=== PATIENT | female | born 1955 | race Two or more races ===

== ENCOUNTER 2024-11-27 14:14 | Inpatient (IN) | payer MEDICARE, OTHER ==
[~2024-11-27] VITALS: Ht 160 cm; Wt 56.0 kg
--- NOTE | 2024-11-27 15:01 | ED.PDOC ---
GI ASSESSMENT HPI Comments This is a 69 year old female presenting to the ED with chief complaint of abdominal pain. Patient reports that she has been experiencing RUQ abdominal pain with associated increased burping for the past 3 days. Patient relays that her pain radiates to her back. Patient denies any vomiting, diarrhea, chest pain, SOB, dizziness, fever, or chills. Chief Complaint: Abdominal Pain Time Seen by MD: 15:00 Reviewed Notes: Nurses Notes, Medications, Allergies Allergies: Coded Allergies: NO KNOWN ALLERGIES (Unverified , 11/27/24) Information Source: Patient Mode of Arrival: Ambulatory Timing: Days Duration: Since onset Prehospital treatment: None Quality: Aching Vomitus: None Stool: Normal Severity: Moderate Recent: None Recent Hx of: None Pain Location: RUQ Modifying Factors: Nothing Associated sign and symptoms: Abdominal Pain Past Medical History PAST MEDICAL HISTORY: DM, High Lipids, HTN Surgical History: Appendectomy CITRUS PICKER History: Denies all [place]RUS PICKER Hx Family History Family History: Reviewed,noncontributory to illness Social History Smoker: Non-Smoker Alcohol: Denies ETOH Use Drugs: Denies Drug Use Lives In: Home Constitutional: denies: chills, diaphoresis, fatigue, fever, malaise, sweats, weakness, others EENTM: denies: blurred vision, double vision, ear bleeding, ear discharge, ear drainage, ear pain, ear ringing, eye pain, eye redness, hearing loss, mouth pain, mouth swelling, nasal discharge, nose bleeding, nose congestion, nose pain, photophobia, tearing, throat pain, throat swelling, voice changes, others Respiratory: denies: cough, hemoptysis, orthopnea, SOB at rest, shortness of breath, SOB with excertion, stridor, wheezing, others Cardiovascular: denies: chest pain, dizzy spells, diaphoresis, Dyspnea on exertion, edema, irregular heart beat, left arm pain, lightheadedness, palpitations, PND, syncope, others Gastrointestinal: reports: abdominal pain; denies: abdomen distended, blood streaked bowels, constipated, diarrhea, dysphagia, difficulty swallowing, hematemesis, melena, nausea, poor appetite, poor fluid intake, rectal bleeding, rectal pain, vomiting, others Genitourinary: denies: abnormal vagina bleeding, burning, dyspareunia, dysuria, flank pain, frequency, hematuria, incontinence, pain, , vagina discharge, urgency, others Neurological: denies: dizziness, fainting, headache, left sided numbness, left sided weakness, numbness, paresthesia, pre-existing deficit, right sided numbness, right sided weakness, seizure, speech problems, tingling, tremors, weakness, others Musculoskeletal: reports: back pain; denies: gout, joint pain, joint swelling, muscle pain, muscle stiffness, neck pain, others Integumetry: denies: bruises, change in color, change in hair/nails, dryness, laceration, lesions, lumps, rash, wounds, others Allergic/Immunocompromised: denies: Difficulty Healing, Frequent Infections, Hives, Itching, others Hematologic/Lymphatic: denies: anemia, blood clots, easy bleeding, easy bruising, swollen glands, others Endocrine: denies: excessive hunger, excessive sweating, excessive thirst, excessive urination, flushing, intolerance to cold, intolerance to heat, une xplained weight gain, unexplained weight loss, others Psychiatric: denies: anxiety, bipolar disorder, depression, hopeless, panic disorder, schizophrenia, sleepless, suicidal, others All Other Systems: Reviewed and Negative Physical Exam General Appearance: Moderate Distress HEENT: Normal ENT Inspection, Pharynx Normal, TMs Normal Neck: Full Range of Motion, Non-Tender, Normal, Normal Inspection Respiratory: Chest Non-Tender, Lungs Clear, No Accessory Muscle Use, No Respiratory Distress, Normal Breath Sounds Cardiovascular: No Edema, No JVD, No Murmur, No Gallop, Normal Peripheral Pulses, Regular Rate/Rhythm Breast Exam: Deferred Gastrointestinal: Diffuse, No Organomegaly, No Pulsatile Mass, Normal Bowel Sounds, Soft, Tenderness Genitalia: Deferred Pelvic: Deferred Rectal: Deferred Extremities: No calf tenderness, Normal capillary refill, Normal inspection, Normal range of motion, Non-tender, No pedal edema Musculoskeletal : Apperance: Normal 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 Was a procedure done?: No GI differential Dx Differential Diagnosis: Appendicitis, Gastritis/PUD, Gastroenteritis, GI hemorrhage, Pancreatitis, UTI, Electrolyte Imbalance X-Ray, Labs, Meds, VS Vital Signs Date Time Temp Pulse Resp B/P (MAP) Pulse Ox O2 Delivery O2 Flow Rate FiO2 11/27/24 14:21 98.9 85 18 109/79 98 98.9 Lab Test 11/27/24 15:42 Range/Units White Blood Count 7.7 4.4-10.8 10^3/uL Red Blood Count 3.70 L 4.0-5.20 10^6/uL Hemoglobin 11.9 L 12.2-16.2 g/dL Hematocrit 35.7 L 36.0-46.0 % Mean Corpuscular Volume 96.5 80.0-100.0 fL Mean Corpuscular Hemoglobin 32.2 H 28.0-32.0 pg Mean Corpuscular Hemoglobin Concent 33.4 32.0-36.0 g/dL Red Cell Distribution Width 14.0 11.8-14.3 % Platelet Count 345 140-450 10^3/uL Mean Platelet Volume 6.8 L 6.9-10.8 fL Neutrophils (%) (Auto) 60.2 37.0-80.0 % Lymphocytes (%) (Auto) 30.2 10.0-50.0 % Monocytes (%) (Auto) 7.4 0.0-12.0 % Eosinophils (%) (Auto) 1.9 0.0-7.0 % Basophils (%) (Auto) 0.3 0.0-2.0 % Neutrophils # (Auto) 4.6 1.6-8.6 10 ^3/uL Lymphocytes # (Auto) 2.3 0.4-5.4 10 ^3/uL Monocytes # (Auto) 0.6 0-1.3 10 ^3/uL Eosinophils # (Auto) 0.1 0-0.8 10 ^3/uL Basophils # (Auto) 0 0-0.2 10 ^3/uL Nucleated Red Blood Cells 0.0 % Sodium Level 140 136-145 mmol/L Potassium Level 3.7 3.5-5.1 mmol/L Chloride Level 107 98-107 mmol/L Carbon Dioxide Level 23 20-31 mmol/L Anion Gap 10 5-15 Blood Urea Nitrogen 7 L 9-23 mg/dL Creatinine 0.60 0.550-1.02 mg/dL Glomerular Filtration Rate Calc 98 >90 mL/min BUN/Creatinine Ratio 11.7 10.0-20.0 Serum Glucose 85 74-106 mg/dL Calcium Level 9.4 8.7-10.4 mg/dL Total Bilirubin 0.5 0.2-1.0 mg/dL Aspartate Amino Transferase (AST) 15 13-40 U/L Alanine Aminotransferase (ALT) 13 7-40 U/L Alkaline Phosphatase 62 46-116 U/L Total Protein 7.0 5.7-8.2 g/dL Albumin 4.3 3.2-4.8 g/dL Lipase 43 12-53 U/L CBC is within normal limits except for mild anemia with a hemoglobin of 11.9 The chemistry panel is within normal limits The lipase is within normal limits The gallbladder ultrasound was done and it does show that the gallbladder has been removed. We are not aware of this at this time. The patient is being admitted with a diagnosis of intractable abdominal pain. The urine test is pending. The patient was given morphine for the pain and Zofran for the nausea Images Reviewed?: Images reviewed and evaluated by me Time of 1ST Reevaluation: 17:40 Reevaluation 1ST: Unchanged Patient Education/Counseling: Diagnosis, Treatment, Prognosis Family Education/Counseling: No Family Present SEPSIS Sepsis Screen Date sepsis recognized/suspect: Nov 27, 2024 Time Sepsis recognized/suspect: 1423 Recent Procedure: No On Antibiotic Therapy: No Respiratory Rate >20: No Heart Rate >90: No Temp<36 C (96.8 F) or >38.3 C: No SBP <90 or MAP <65 mmHG: No New Acute Mental Status Change: No Is the patient on CPAP, BIPAP,: No Physician Orders Electrocardigram (11/27/24 14:27) Urinalysis (11/27/24 15:04) Abdomen Limited (11/27/24 15:04) Vital Signs Date Time Temp Pulse Resp B/P (MAP) Pulse Ox O2 Delivery O2 Flow Rate FiO2 11/27/24 14:21 98.9 85 18 109/79 98 98.9 Laboratory Tests Test 11/27/24 15:42 White Blood Count 7.7 10^3/uL (4.4-10.8) Departure 1 Departure Time of Disposition: 17:39 Impression: Primary Impression: Intractable abdominal pain Disposition: ADMITTED INPATIENT Condition: Fair Critical Care Note Critical Care Time?: No Stability Stability form required: Yes Unstable for transfer: Telemetry monitoring (Telemetry monitoring required), ED Physician Assesment (Clinical assesment) Heart Score Heart Score: Heart Score Response (Comments) Value History N/A 0 EKG N/A 0 Age N/A 0 Risk Factors N/A 0 Troponin N/A 0 Total 0 I personally scribed for MARKIE CAMACHO MD ([email or web address]) on 11/27/24 at 15:01. Electronically submitted by Donaldo Del Cid ([email or web address]). MARKIE CAMACHO MD Nov 27, 2024 15:01
--- NOTE | 2024-11-27 16:02 | DVH ---
RIGHT UPPER QUADRANT ABDOMINAL ULTRASOUND CLINICAL HISTORY: pain COMPARISON: None TECHNIQUE: Grayscale and color Doppler ultrasound imaging of the right upper quadrant is performed. FINDINGS: Pancreas: Obscured by artifact from bowel gas. Liver: Measures approximately 13.7 cm in length. No discrete Hepatic lesions as visualized. The por glory vein appears patent. Gallbladder: Gallbladder is reported to be surgically absent. Common bile duct: Mildly prominent at 6.7 mm. Right Kidney: Measures 9.1 cm in length. No hydronephrosis. Right upper quadrant Inferior vena cava: Visualized portions are grossly patent. IMPRESSION: Gallbladder is reported to be surgically absent. Mild prominence of the common bile duct. This may be compensatory in nature given the prior cholecyst ectomy. If there is persistent concern for biliary obstruction, MRCP may be considered to further evaluate. HS:Y
[2024-11-27 16:03] LABS: Hematocrit 35.7 % (36.0-46.0); Hemoglobin 11.9 g/dL (12.2-16.2); Mean Corpuscular Hemoglobin 32.2 pg (28.0-32.0); Mean Corpuscular Volume 96.5 fL (80.0-100.0); Nucleated Red Blood Cells % 0.0 %
[2024-11-27 16:18] LABS: Alanine Aminotransferase 13 U/L (7-40); Albumin 4.3 g/dL (3.2-4.8); Alkaline Phosphatase 62 U/L (46-116); Anion Gap 10 (5-15); BUN/Creatinine Ratio 11.7 (10.0-20.0); Bilirubin, Total 0.5 mg/dL (0.2-1.0); Calcium 9.4 mg/dL (8.7-10.4); Carbon Dioxide 23 mmol/L (20-31); Chloride 107 mmol/L (98-107); Glucose 85 mg/dL (74-106); Lipase 43 U/L (12-53); Potassium 3.7 mmol/L (3.5-5.1); Sodium 140 mmol/L (136-145); Total Protein 7.0 g/dL (5.7-8.2)
[2024-11-27 16:19] LABS: Blood Urea Nitrogen 7 mg/dL (9-23)
--- NOTE | 2024-11-27 23:47 | DVH ---
Exam: XY KUB ABDOMEN SINGLE VIEW Indication: abdominal pain Comparison: US ABDOMEN LIMITED on DOS: 11/27/24, CT CT AB PEL WO CON-NO ORAL OR IV on DOS: 09/24/24, CT CT AB PEL WO CON-NO ORAL OR IV on DOS: 09/08/24 Technique: 2 radiographic views of the abdomen. Findings: The visualized portions of the lung bases are clear. Nonobstructive bowel gas pattern noted. Retained stool throughout the colon in a pattern of constipat ion. There is no definite evidence for pneumoperitoneum. No abnormal calcifications noted. Intrauterine device. Impression: 1. Constipation. Nonobstructive bowel gas pattern.
--- NOTE | 2024-11-27 23:49 | DVHHPRES ---
History of Present Illness Resident Creating Document: LU FARRELL RESIDENT History of Present Illness Freida Mancilla is a 69 year old female with past medical history of diabetes mellitus, hyperlipidemia, hypertension came to the ED with two complains of right lower quadrant abdominal pain which is 10/10 intensity, sharp, stabbing pain which is concerned, radiating to the midback since two days. Patient states that she has been burping a lot coma denies any nausea, Vomiting, Diarrhea, chest pain, Dizziness, fever, chills, Dizziness, Headaches. Patient is admitted for further management. Past medical history: DM, hyperlipidemia, HTN Surgical History: Appendectomy, cholecystectomy Family history: Reviewed, noncontributory Posterior history: Denies smoking, drinking, drug use Lives with: Family PCP: Dr. Sung Review of Systems Constitutional: No: Fever, Chills, Sweats, Weakness, Malaise, Other Eyes: No: Pain, Vision change, Conjunctivae inflammation, Eyelid inflammation, Other, Redness ENT: No: Ear pain, Ear discharge, Nose pain, Nose discharge, Nose congestion, Mouth pain, Mouth swelling, Throat pain, Throat swelling, Other Respiratory: No: Cough, Dry, Shortness of breath, SOB with excertion, Wheezing, Hemoptysis, Pleuritic Pain, Sputum, Wheezing, Other Cardiovascular: No: Chest Pain, Palpitations, Orthopnea, Paroxysmal Noc. Dyspnea, Edema, Lt Headedness, Other Gastrointestinal: Abdominal Pain, Constipation; No: Nausea, Vomiting, Diarrhea, Melena, Hematochezia, Other Genitourinary: No Dysuria, No Frequency, No Incontinence, No Hematuria, No Retention, No Other Musculoskeletal: No: other, neck pain, shoulder pain, arm pain, back pain, hand pain, leg pain, foot pain Skin: No: Rash, Lesions, Jaundice, Bruising, Other Neurological: No: Weakness, Numbness, Incoordination, Change in speech, Confusion, Seizures, Other Allergies: Coded Allergies: NO KNOWN ALLERGIES (Unverified , 11/27/24) Exam Vital Signs Vital Signs Date Time Temp Pulse Resp B/P (MAP) Pulse Ox O2 Delivery O2 Flow Rate FiO2 11/27/24 22:44 97.7 67 18 143/74 (97) 96 97.7 11/27/24 19:12 Room Air Exam General Appearance: Alert, Oriented X3, Cooperative, Not in acute distress HEENT: Atraumatic, Mucous membranes moist/pink Respiratory: Clear to auscultation, Normal air movement, No added sounds Cardiovascular: Regular rate, Normal S1, Normal S2, No murmurs Abdominal: Left lower quadrant tenderness, mid back tenderness Extremities: No edema, Normal pulses, No tenderness/swelling Skin: No Significant rash, except past surgical scars Neuro: Normal speech, sensorimotor deficits none Psych/Mental Status: Mental status NL, Mood NL Nurse was there as cloth mender during examination Labs/Xrays Labs Test 11/27/24 15:42 Range/Units White Blood Count 7.7 4.4-10.8 10^3/uL Red Blood Count 3.70 L 4.0-5.20 10^6/uL Hemoglobin 11.9 L 12.2-16.2 g/dL Hematocrit 35.7 L 36.0-46.0 % Mean Corpuscular Volume 96.5 80.0-100.0 fL Mean Corpuscular Hemoglobin 32.2 H 28.0-32.0 pg Mean Corpuscular Hemoglobin Concent 33.4 32.0-36.0 g/dL Red Cell Distribution Width 14.0 11.8-14.3 % Platelet Count 345 140-450 10^3/uL Mean Platelet Volume 6.8 L 6.9-10.8 fL Neutrophils (%) (Auto) 60.2 37.0-80.0 % Lymphocytes (%) (Auto) 30.2 10.0-50.0 % Monocytes (%) (Auto) 7.4 0.0-12.0 % Eosinophils (%) (Auto) 1.9 0.0-7.0 % Basophils (%) (Auto) 0.3 0.0-2.0 % Neutrophils # (Auto) 4.6 1.6-8.6 10 ^3/uL Lymphocytes # (Auto) 2.3 0.4-5.4 10 ^3/uL Monocytes # (Auto) 0.6 0-1.3 10 ^3/uL Eosinophils # (Auto) 0.1 0-0.8 10 ^3/uL Basophils # (Auto) 0 0-0.2 10 ^3/uL Nucleated Red Blood Cells 0.0 % Sodium Level 140 136-145 mmol/L Potassium Level 3.7 3.5-5.1 mmol/L Chloride Level 107 98-107 mmol/L Carbon Dioxide Level 23 20-31 mmol/L Anion Gap 10 5-15 Blood Urea Nitrogen 7 L 9-23 mg/dL Creatinine 0.60 0.550-1.02 mg/dL Glomerular Filtration Rate Calc 98 >90 mL/min BUN/Creatinine Ratio 11.7 10.0-20.0 Serum Glucose 85 74-106 mg/dL Calcium Level 9.4 8.7-10.4 mg/dL Total Bilirubin 0.5 0.2-1.0 mg/dL Aspartate Amino Transferase (AST) 15 13-40 U/L Alanine Aminotransferase (ALT) 13 7-40 U/L Alkaline Phosphatase 62 46-116 U/L Total Protein 7.0 5.7-8.2 g/dL Albumin 4.3 3.2-4.8 g/dL Lipase 43 12-53 U/L SEPSIS Sepsis Screen Date sepsis recognized/suspect: Nov 27, 2024 Time Sepsis recognized/suspect: 1913 Recent Procedure: No On Antibiotic Therapy: No Respiratory Rate >20: No Heart Rate >90: No Temp<36 C (96.8 F) or >38.3 C: No SBP <90 or MAP <65 mmHG: No New Acute Mental Status Change: No Is the patient on CPAP, BIPAP,: No Physician Orders Kub Abdomen Single View (11/27/24 22:35) Vital Signs Date Time Temp Pulse Resp B/P (MAP) Pulse Ox O2 Delivery O2 Flow Rate FiO2 11/27/24 22:44 97.7 67 18 143/74 (97) 96 97.7 11/27/24 19:12 68 20 99 Room Air 11/27/24 19:12 98.2 68 20 132/87 (102) 99 98.2 Laboratory Tests Test 11/27/24 15:42 White Blood Count 7.7 10^3/uL (4.4-10.8) Assessment/Plan Assessment/Plan Assessment and plan # Intractable abdominal pain - liver ultrasound showed Gallbladder is reported to be surgically absent. Mild prominence of the common bile duct. This may be compensatory in nature given the prior cholecystectomy. - CT abdomen ordered, pending # slow transit constipation - KUB showed constipation. Nonobstructive bowel gas pattern - Colace #Mild normocytic anemia -monitor labs # diabetes mellitus -HbA1c 5.8 -mild insulin sliding scale # hypertension -continue Home meds # hyperlipidemia -continue home meds GI PPX: Protonix Diet: NPO Goals of care addressed with the patient for more than 31 minutes: Full code status Case discussed with Dr. Rebollar ,patient and nurse Plan discussed with: Patient Date of Service: Nov 27, 2024 Billing Provider: LU FARRELL Common Visit Codes: [id number] INP/OBS CARE (HIGH) Secondary Visit Codes: [id number] CARE PLAN 30 MINUTES LU FARRELL Nov 27, 2024 23:49
[2024-11-28] MEDS ORDERED: ONDANSETRON HCL 4 MG/2 ML VIAL IV PRN
[2024-11-28] MEDS ORDERED: AMLO1TAB22 PO (00:44)
[2024-11-28] MEDS: PANTOPRAZOLE 40 MG/10 ML VIAL INJ IV ONE (01:54)
[2024-11-28] MEDS: HYDROcodone-ACET 5/325MG TAB PO PRN (01:54)
[2024-11-28] MEDS: DOCUSATE SOD 100 MG CAP PO ONE (01:54)
[2024-11-28 02:35] VITALS: BP 139/87; PULSE 77; RESP 18; TEMP 97.4; O2SAT 99
[2024-11-28] MEDS ORDERED: DEXTROSE (50%) 50ML SYRG IV PRN (03:15)
--- NOTE | 2024-11-28 03:18 | DVH ---
Exam: CT CT AB PEL WO CON-NO ORAL OR IV History: abd pain Comparison Study: XY KUB ABDOMEN SINGLE VIEW on DOS: 11/27/24, US ABDOMEN LIMITED on DOS: 11/27/24, CT CT AB PEL WO CON-NO ORAL OR IV on DOS: 09/24/24, CT CT AB PEL WO CON-NO ORAL OR IV on DOS: 09/08/24 Technique: Multidetector spiral CT of the abdomen was performed from lung bases to pubic symphysis. I maging was performed without IV contrast. Axial, coronal and sagittal multiplanar reformats were obta ined from the axial data set by the technologist. Radiation Dose : 1. Abdomen/Pelvis: CTDIvol 5.07 mGy, DLP 295.19 mGy*cm. Findings: Evaluation of solid organs is limited due to lack of intravenous contrast use. Lung Bases: No acute or significant lung base finding. Normal heart size. No pleural or pericardial effusion. Liver: The liver is normal in size. No focal lesions. Gallbladder and Biliary Tree: Gallbladder not identified. Spleen: Unremarkable Pancreas: The pancreas is grossly normal in appearance. Adrenal Glands: Unremarkable Kidneys: Kidneys are grossly normal without calculi or hydronephrosis. Bladder: Grossly unremarkable for degree of distention. Bowel: The stomach is grossly normal in appearance. Retained colorectal stool. Small bowel and colon are otherwise normal in caliber and distribution. The appendix is normal. Ascites: Absent Lymphadenopathy: No mesenteric, retroperitoneal or periportal lymphadenopathy. Abdominal Wall and Mesentery: Unremarkable. Vasculature: The visualized abdominal aorta is normal in size and caliber. Atherosclerotic vascular c alcifications. Evaluation of abdominal and pelvic vessels is limited due to lack of intravenous cont rast. Pelvic Organs: Unremarkable. Intrauterine device. Musculoskeletal: No aggressive focal bony lesions, acute fractures or dislocation. IMPRESSION: 1. No acute abdominal or pelvic findings. 2. Retained colorectal stool. Radiation optimization: All CT scans at this facility use at least one of these dose optimization ramiro hniques: automated exposure control mA and/or kV adjustment per patient size (includes targeted exam s where dose is matched to clinical indication) or iterative reconstruction.
[2024-11-28 04:54] VITALS: BP 106/59; PULSE 62; RESP 18; TEMP 97.4; O2SAT 98
[2024-11-28] MEDS: InsuLIN REG 1unit/0.01ml Soln (100units/ml) SC SCH (05:17)
[2024-11-28] MEDS: ACCU-CHEK COMFORT CURVE STRIP VI SCH (05:17)
[2024-11-28] MEDS ORDERED: ATOR20TA50 PO (06:48)
[2024-11-28] MEDS ORDERED: METF-372 PO (06:48)
[2024-11-28] MEDS ORDERED: LISI-275 PO (06:49)
[2024-11-28 07:49] LABS: Hematocrit 35.9 % (36.0-46.0); Hemoglobin 12.2 g/dL (12.2-16.2); Mean Corpuscular Hemoglobin 32.5 pg (28.0-32.0); Mean Corpuscular Volume 95.7 fL (80.0-100.0); Nucleated Red Blood Cells % 0.0 %
[2024-11-28 08:29] LABS: Alanine Aminotransferase 12 U/L (7-40); Albumin 4.3 g/dL (3.2-4.8); Alkaline Phosphatase 59 U/L (46-116); Anion Gap 11 (5-15); BUN/Creatinine Ratio 13.7 (10.0-20.0); Calcium 9.2 mg/dL (8.7-10.4); Carbon Dioxide 24 mmol/L (20-31); Potassium 3.7 mmol/L (3.5-5.1); Sodium 142 mmol/L (136-145); Total Protein 6.9 g/dL (5.7-8.2); Triglycerides 73 mg/dL (< 150)
[2024-11-28 08:30] LABS: Cholesterol 143 mg/dL (< 200)
[2024-11-28 08:33] LABS: Blood Urea Nitrogen 7 mg/dL (9-23); Chloride 107 mmol/L (98-107); Glucose 73 mg/dL (74-106); HDL Cholesterol 65 mg/dL (40-59)
[2024-11-28 08:37] LABS: Bilirubin, Total 0.8 mg/dL (0.2-1.0)
[2024-11-28 09:00] VITALS: BP 119/71; PULSE 55; RESP 17; TEMP 97.7; O2SAT 98
[2024-11-28] MEDS: PANTOPRAZOLE 40 MG/10 ML VIAL INJ IV SCH (09:45)
[2024-11-28] MEDS: DOCUSATE SOD 100 MG CAP PO PRN (09:46)
[2024-11-28 10:34] LABS: Urine Protein, UAD Negative (Negative)
--- NOTE | 2024-11-28 12:27 | DVHPN2 ---
Reviewed: Care Plan, H&P, Labs, Medications, Previous Orders, Radiology Changes from previous H/P or p: No Changes Eyes: No Pain, No Vision change, No Conjunctivae inflammation, No Eyelid inflammation, No Other, No Redness ENT: No Ear pain, No Ear discharge, No Nose pain, No Nose discharge, No Nose congestion, No Mouth pain, No Mouth swelling, No Throat pain, No Throat swelling, No Other Cardiovascular: No Chest Pain, No Palpitations, No Orthopnea, No Paroxysmal Noc. Dyspnea, No Edema, No Lt Headedness, No Other Respiratory: No Cough, No Dry, No Shortness of breath, No SOB with excertion, No Wheezing, No Hemoptysis, No Pleuritic Pain, No Sputum, No Other Gastrointestinal: No Nausea, No Vomiting; Abdominal Pain; No Diarrhea; C onstipation; No Melena, No Hematochezia, No Other Genitourinary: No Dysuria, No Frequency, No Incontinence, No Hematuria, No Retention, No Other Musculoskeletal: No other, No neck pain, No shoulder pain, No arm pain, No back pain, No hand pain, No leg pain, No foot pain Skin: No Rash, No Lesions, No Jaundice, No Bruising, No Other Objective Vitals Vital Signs Date Time Temp Pulse Resp B/P (MAP) Pulse Ox O2 Delivery O2 Flow Rate FiO2 11/28/24 09:50 119/71 11/28/24 09:00 97.7 55 17 98 97.7 11/28/24 08:00 Room Air* 0 21 Intake/Output Intake and Output 11/28/24 07:00 Intake Total 0 ml Balance 0 ml Intake Oral 0 ml # Voids 1 Medications Current Medications Medications Dose Ordered Sig/Caridad Route Start Time Stop Time Status Last Admin Dose Admin Acetaminophen/ Hydrocodone Bitart 1 tab Q4HP PRN PO 11/28/24 00:00 11/28/24 09:46 1 TAB Ondansetron HCl 4 mg Q4HP PRN IV 11/28/24 00:00 Pantoprazole Sodium 40 mg DAILY IV 11/28/24 10:00 11/28/24 09:45 40 MG Docusate Sodium 100 mg BIDPRN PRN PO 11/28/24 00:30 11/28/24 09:46 100 MG Amlodipine Besylate 5 mg DAILY PO 11/28/24 10:00 11/28/24 09:50 5 MG Diagnostic Test (Pha) 1 strip Q6HR 11/28/24 06:00 11/28/24 11:31 1 STRIP Insulin Human Regular Q6HR SC 11/28/24 06:00 Dextrose 50 ml UD PRN IV 11/28/24 03:15 Laboratory Results Laboratory Tests 11/28/24 06:09 Chemistry Test 11/27/24 15:42 11/28/24 06:09 Albumin 4.3 g/dL (3.2-4.8) 4.3 g/dL (3.2-4.8) Calcium Level 9.4 mg/dL (8.7-10.4) 9.2 mg/dL (8.7-10.4) Total Protein 7.0 g/dL (5.7-8.2) 6.9 g/dL (5.7-8.2) Lipid panel Test 11/27/24 15:42 11/28/24 06:09 Lipase 43 U/L (12-53) Cholesterol Level 143 mg/dL (< 200) HDL Cholesterol 65 mg/dL (40-59) H Triglycerides Level 73 mg/dL (< 150) LFT Test 11/27/24 15:42 11/28/24 06:09 Alanine Aminotransferase (ALT) 13 U/L (7-40) 12 U/L (7-40) Alkaline Phosphatase 62 U/L (46-116) 59 U/L (46-116) Aspartate Amino Transferase (AST) 15 U/L (13-40) 17 U/L (13-40) Total Bilirubin 0.5 mg/dL (0.2-1.0) 0.8 mg/dL (0.2-1.0) HgA1c, TSH Test 11/28/24 06:09 Hemoglobin A1c 5.8 % A1C (<5.7) H Thyroid Stimulating Hormone (TSH) 1.12 uIU/mL (0.55-4.78) Urinalysis Test 11/27/24 09:30 Urine Color Yellow (Yellow) Urine Clarity Clear (Clear) Urine pH 5.5 (5.0-9.0) Urine Specific [place] 1.015 (1.001-1.035) Urine Protein Negative (Negative) Urine Ketones Trace (Negative) Urine Blood 1+ /uL (Negative) H Urine Nitrite Negative (Negative) Urine Bilirubin Negative (Negative) Urine Urobilinogen Normal mg/dL (Negative) Urine Leukocyte Esterase 1+ /uL (Negative) Urine RBC 6 /hpf (0 - 4) Urine Microscopic WBC 14 /HPF (0-5) H Urine Squamous Epithelial Cells Few /hpf (<5) Urine Bacteria Few /hpf (None Seen) H Urine Mucus Few (None Seen) Urine Glucose Normal mg/dL (Normal) Labs and/or images reviewed: Labs reviewed by me, Image(s) reviewed by me Assessment/Plan Assessment/Plan Right lower quadrant abdominal pain: White count is normal, CT abdomen pelvis without contrast negative for any acute appendicitis Intractable abdominal pain History of cholecystectomy Constipation lactulose Anemia Diabetes Hypertension Hypercholesterolemia Plan discussed with: Patient My Orders Orders - JAMES VILLARREAL MD Procedure Category Date Status Time Urine Bacterial BRANDON 11/28/24 Verified Culture 12:22 Date of Service: Nov 28, 2024 Billing Provider: JAMES VILLARREAL MD Common Visit Codes: [id number] INP/OBS CARE(HIGH) JAMES VILLARREAL MD Nov 28, 2024 12:27
[2024-11-28] MEDS ORDERED: HYDROcodone-ACET 5/325MG TAB PO PRN (12:30)
[2024-11-28 13:00] VITALS: BP 118/66; PULSE 56; RESP 17; TEMP 97.7; O2SAT 99
[2024-11-28] MEDS: LACTULOSE 20Gm/30ML SOLN PO ONE (13:21)
--- NOTE | 2024-11-28 15:05 | DVH ---
INDICATION: RLQ ultrasound ruled out appendicitis TECHNIQUE: Graded compression technique along with Multiple real-time sonographic images were obtain ed for evaluation of the right lower quadrant. FINDINGS: The appendix was not visualized. No free fluid or lymph nodes are seen on this exam. IMPRESSION: 1.Nonvisualization of the appendix, thus cannot exclude appendicitis.
[2024-11-28 17:00] VITALS: BP 119/80; PULSE 66; RESP 17; TEMP 97.8; O2SAT 97
[2024-11-29] VITALS (8 sets, daily range): BP systolic 118–144; BP diastolic 67–83; PULSE 63–93; RESP 18–20; TEMP 96.6–98; O2SAT 98–100
--- NOTE | 2024-11-29 12:21 | DVHPN2 ---
Reviewed: Care Plan, H&P, Labs, Medications, Previous Orders, Radiology Changes from previous H/P or p: No Changes Eyes: No Pain, No Vision change, No Conjunctivae inflammation, No Eyelid inflammation, No Other, No Redness ENT: No Ear pain, No Ear discharge, No Nose pain, No Nose discharge, No Nose congestion, No Mouth pain, No Mouth swelling, No Throat pain, No Throat swelling, No Other Cardiovascular: No Chest Pain, No Palpitations, No Orthopnea, No Paroxysmal Noc. Dyspnea, No Edema, No Lt Headedness, No Other Respiratory: No Cough, No Dry, No Shortness of breath, No SOB with excertion, No Wheezing, No Hemoptysis, No Pleuritic Pain, No Sputum, No Other Gastrointestinal: Abdominal Pain, Constipation Genitourinary: No Dysuria, No Frequency, No Incontinence, No Hematuria, No Retention, No Other Musculoskeletal: No other, No neck pain, No shoulder pain, No arm pain, No back pain, No hand pain, No leg pain, No foot pain Skin: No Rash, No Lesions, No Jaundice, No Bruising, No Other Objective Vitals Vital Signs Date Time Temp Pulse Resp B/P (MAP) Pulse Ox O2 Delivery O2 Flow Rate FiO2 11/29/24 09:26 125/68 11/29/24 08:51 98.0 63 20 99 98.0 11/29/24 08:00 Room Air* 0 21 Intake/Output Intake and Output 11/29/24 07:00 Intake Total 900 ml Balance 900 ml Intake Oral 900 ml # Voids 4 # Bowel Movements 2 Medications Current Medications Medications Dose Ordered Sig/Caridad Route Start Time Stop Time Status Last Admin Dose Admin Acetaminophen/ Hydrocodone Bitart 1 tab Q4HP PRN PO 11/28/24 00:00 11/28/24 21:16 1 TAB Ondansetron HCl 4 mg Q4HP PRN IV 11/28/24 00:00 Pantoprazole Sodium 40 mg DAILY IV 11/28/24 10:00 11/29/24 09:26 40 MG Docusate Sodium 100 mg BIDPRN PRN PO 11/28/24 00:30 11/28/24 09:46 100 MG Amlodipine Besylate 5 mg DAILY PO 11/28/24 10:00 11/29/24 09:26 5 MG Diagnostic Test (Pha) 1 strip Q6HR 11/28/24 06:00 11/29/24 05:18 1 STRIP Insulin Human Regular Q6HR SC 11/28/24 06:00 Dextrose 50 ml UD PRN IV 11/28/24 03:15 Acetaminophen/ Hydrocodone Bitart 1 tab Q4HPRN PRN PO 11/28/24 12:30 Laboratory Results Laboratory Tests 11/28/24 06:09 Urinalysis Test 11/27/24 09:30 Urine Color Yellow (Yellow) Urine Clarity Clear (Clear) Urine pH 5.5 (5.0-9.0) Urine Specific [place] 1.015 (1.001-1.035) Urine Protein Negative (Negative) Urine Ketones Trace (Negative) Urine Blood 1+ /uL (Negative) H Urine Nitrite Negative (Negative) Urine Bilirubin Negative (Negative) Urine Urobilinogen Normal mg/dL (Negative) Urine Leukocyte Esterase 1+ /uL (Negative) Urine RBC 6 /hpf (0 - 4) Urine Microscopic WBC 14 /HPF (0-5) H Urine Squamous Epithelial Cells Few /hpf (<5) Urine Bacteria Few /hpf (None Seen) H Urine Mucus Few (None Seen) Urine Glucose Normal mg/dL (Normal) Labs and/or images reviewed: Labs reviewed by me, Image(s) reviewed by me Assessment/Plan Assessment/Plan Right lower quadrant abdominal pain: White count is normal, CT abdomen pelvis without contrast negative for any acute appendicitis, right lower quadrant abdominal ultrasound shows possible appendicitis, patient's daughter patient has had appendectomy in the past Intractable abdominal pain History of cholecystectomy Constipation lactulose Anemia Diabetes Hypertension Hypercholesterolemia Plan discussed with: Patient My Orders Orders - JAMES VILLARREAL MD Procedure Category Date Status Time Urine Bacterial BRANDON 11/28/24 Logged Culture 12:22 Hydrocodone-Acet PHA 11/28/24 In Process 5/325mg Tab ([place] 12:30 Right Lower Quad US 11/28/24 Resulted 12:22 Cardiac DIET 11/28/24 Transmitted Diet-2gna,Lofat,Lochol Lunch Date of Service: Nov 29, 2024 Billing Provider: JAMES VILLARREAL MD Common Visit Codes: [id number] INP/OBS CARE(HIGH) JAMES VILLARREAL MD Nov 29, 2024 12:21
--- NOTE | 2024-11-29 15:58 | DVHINCON2 ---
Date of service: Nov 29, 2024 Family History: Patient reports no known family medical history. Allergies: Coded Allergies: NO KNOWN ALLERGIES (Unverified , 11/27/24) Home Meds Reported Medications Lisinopril (Lisinopril) 5 Mg Tab, 1 TAB PO DAILY 11/28/24 Atorvastatin Calcium (ATORVASTATIN CALCIUM) 20 Mg Tab, 1 TAB PO DAILY, #30 TAB 5 Refills 11/28/24 Metformin Hydrochloride (Metformin Hcl) 1,000 Mg Tab, 1 TAB PO BID, #60 TAB 5 Refills 11/28/24 Amlodipine Besylate (Amlodipine Besylate) 5 Mg Tab, 1 TAB PO DAILY 11/28/24 Vital Signs Vital Signs Date Time Temp Pulse Resp B/P (MAP) Pulse Ox O2 Delivery O2 Flow Rate FiO2 11/29/24 12:18 98.0 69 20 129/72 (91) 98 98.0 11/29/24 08:00 Room Air* 0 21 Labs/Diagnostic Data Labs Test 11/29/24 12:58 11/28/24 11:46 11/28/24 06:09 11/27/24 15:42 Range/Units POC Glucose 151 H 70-106 mg/dl Troponin I High Sensitivity 8 </=34 ng/L White Blood Count 5.8 4.4-10.8 10^3/uL Red Blood Count 3.75 L 4.0-5.20 10^6/uL Hemoglobin 12.2 12.2-16.2 g/dL Hematocrit 35.9 L 36.0-46.0 % Mean Corpuscular Volume 95.7 80.0-100.0 fL Mean Corpuscular Hemoglobin 32.5 H 28.0-32.0 pg Mean Corpuscular Hemoglobin Concent 34.0 32.0-36.0 g/dL Red Cell Distribution Width 14.1 11.8-14.3 % Platelet Count 304 140-450 10^3/uL Mean Platelet Volume 7.9 6.9-10.8 fL Neutrophils (%) (Auto) 53.9 37.0-80.0 % Lymphocytes (%) (Auto) 35.4 10.0-50.0 % Monocytes (%) (Auto) 6.9 0.0-12.0 % Eosinophils (%) (Auto) 2.9 0.0-7.0 % Basophils (%) (Auto) 0.9 0.0-2.0 % Neutrophils # (Auto) 3.1 1.6-8.6 10 ^3/uL Lymphocytes # (Auto) 2.1 0.4-5.4 10 ^3/uL Monocytes # (Auto) 0.4 0-1.3 10 ^3/uL Eosinophils # (Auto) 0.2 0-0.8 10 ^3/uL Basophils # (Auto) 0.1 0-0.2 10 ^3/uL Nucleated Red Blood Cells 0.0 % Sodium Level 142 136-145 mmol/L Potassium Level 3.7 3.5-5.1 mmol/L Chloride Level 107 98-107 mmol/L Carbon Dioxide Level 24 20-31 mmol/L Anion Gap 11 5-15 Blood Urea Nitrogen 7 L 9-23 mg/dL Creatinine 0.51 L 0.550-1.02 mg/dL Glomerular Filtration Rate Calc 102 >90 mL/min BUN/Creatinine Ratio 13.7 10.0-20.0 Serum Glucose 73 L 74-106 mg/dL Hemoglobin A1c 5.8 H <5.7 % A1C Calcium Level 9.2 8.7-10.4 mg/dL Total Bilirubin 0.8 0.2-1.0 mg/dL Aspartate Amino Transferase (AST) 17 13-40 U/L Alanine Aminotransferase (ALT) 12 7-40 U/L Alkaline Phosphatase 59 46-116 U/L Total Protein 6.9 5.7-8.2 g/dL Albumin 4.3 3.2-4.8 g/dL Triglycerides Level 73 < 150 mg/dL Cholesterol Level 143 < 200 mg/dL LDL Cholesterol 70 < 100 mg/dL HDL Cholesterol 65 H 40-59 mg/dL Thyroid Stimulating Hormone (TSH) 1.12 0.55-4.78 uIU/mL Lipase 43 12-53 U/L Test 11/27/24 09:30 Range/Units Urine Color Yellow Yellow Urine Clarity Clear Clear Urine pH 5.5 5.0-9.0 Urine Specific [place] 1.015 1.001-1.035 Urine Protein Negative Negative Urine Ketones Trace Negative Urine Blood 1+ H Negative /uL Urine Nitrite Negative Negative Urine Bilirubin Negative Negative Urine Urobilinogen Normal Negative mg/dL Urine Leukocyte Esterase 1+ Negative /uL Urine RBC 6 0 - 4 /hpf Urine Microscopic WBC 14 H 0-5 /HPF Urine Squamous Epithelial Cells Few <5 /hpf Urine Bacteria Few H None Seen /hpf Urine Mucus Few None Seen Urine Glucose Normal Normal mg/dL Assessment [id number] RESOLVING ABD PAIN RESOLVING CONSTIPATION NOW DIARRHEA AFEBRILE VSS ABD SOFT MILD TENDER RLQ NO REBOUND NICHOLE DIET NO CLINICAL OR RADIOLOGIC EVIDENCE OF AC APPENDICITIS MANAGE CONSERVATIVELY CLEARED FOR DISCHARGE Plan discussed with: Other JOCELYN OROURKE MD Nov 29, 2024 15:58
--- NOTE | 2024-11-29 16:28 | DVHINCON2 ---
DATE OF CONSULTATION: 11/29/2024 HISTORY OF PRESENT ILLNESS: This patient is 69 years old, coming in with abdominal pain, right lower abdomen. I was asked to see her and currently her pain is resolving. No nausea or vomiting. No constipation or diarrhea. She had a history of constipation 2 days ago, but now she is having diarrhea and she is passing flatus. No hematemesis or melena. No bleeding per rectum. PAST MEDICAL HISTORY: Diabetes mellitus, hypertension. PAST SURGICAL HISTORY: Open cholecystectomy. The records indicate appendectomy, but the CAT scan is suggesting a normal appendix. PHYSICAL EXAMINATION: VITAL SIGNS: Afebrile. Stable signs. HEENT: With no evidence of pallor, cyanosis, or jaundice. NECK: Supple, nontender with no thyromegaly. No lymphadenopathy. CHEST AND LUNGS: Clear. HEART: Within normal limits. ABDOMEN: Soft, minimally tender in the right lower abdomen with no rebound. EXTREMITIES: Unremarkable. NEUROLOGIC: He is intact. CLINICAL IMPRESSION: The patient has abdominal pain secondary to resolving constipation and now she has diarrhea and no clinical or radiological evidence of acute appendicitis. PLAN: The plan will be she needs to maintain her management conservatively with no indication of urgent surgery at this time. MD AMBROSIO Serrato/XUAN TID: [id number] RECEIPT: [id number] cc: Moiz Bui MD
[2024-11-30 01:00] VITALS: BP 109/69; PULSE 67; RESP 20; TEMP 96.3; O2SAT 97
[2024-11-30 05:00] VITALS: BP 108/69; PULSE 62; RESP 20; TEMP 96.3; O2SAT 98
[2024-11-30 08:00] VITALS: PULSE 79; RESP 16; O2SAT 100
[2024-11-30 09:00] VITALS: BP 130/65; PULSE 79; RESP 16; TEMP 97.9; O2SAT 100
--- NOTE | 2024-11-30 12:48 | DVHPN2 ---
Reviewed: Care Plan, H&P, Labs, Medications, Previous Orders, Radiology Changes from previous H/P or p: No Changes Eyes: No Pain, No Vision change, No Conjunctivae inflammation, No Eyelid inflammation, No Other, No Redness ENT: No Ear pain, No Ear discharge, No Nose pain, No Nose discharge, No Nose congestion, No Mouth pain, No Mouth swelling, No Throat pain, No Throat swelling, No Other Cardiovascular: No Chest Pain, No Palpitations, No Orthopnea, No Paroxysmal Noc. Dyspnea, No Edema, No Lt Headedness, No Other Respiratory: No Cough, No Dry, No Shortness of breath, No SOB with excertion, No Wheezing, No Hemoptysis, No Pleuritic Pain, No Sputum, No Other Gastrointestinal: Abdominal Pain, Constipation Genitourinary: No Dysuria, No Frequency, No Incontinence, No Hematuria, No Retention, No Other Musculoskeletal: No other, No neck pain, No shoulder pain, No arm pain, No back pain, No hand pain, No leg pain, No foot pain Skin: No Rash, No Lesions, No Jaundice, No Bruising, No Other Objective Vitals Vital Signs Date Time Temp Pulse Resp B/P (MAP) Pulse Ox O2 Delivery O2 Flow Rate FiO2 11/30/24 09:20 130/65 11/30/24 09:00 97.9 79 16 100 97.9 11/30/24 08:00 Room Air* 0 21 Intake/Output Intake and Output 11/30/24 07:00 Intake Total 900 ml Balance 900 ml Intake Oral 900 ml # Voids 6 # Bowel Movements 2 Medications Current Medications Medications Dose Ordered Sig/[place] Route Start Time Stop Time Status Last Admin Dose Admin Acetaminophen/ Hydrocodone Bitart 1 tab Q4HP PRN PO 11/28/24 00:00 11/29/24 21:15 1 TAB Ondansetron HCl 4 mg Q4HP PRN IV 11/28/24 00:00 Pantoprazole Sodium 40 mg DAILY IV 11/28/24 10:00 11/30/24 09:20 40 MG Docusate Sodium 100 mg BIDPRN PRN PO 11/28/24 00:30 11/28/24 09:46 100 MG Amlodipine Besylate 5 mg DAILY PO 11/28/24 10:00 11/30/24 09:20 5 MG Diagnostic Test (Pha) 1 strip Q6HR 11/28/24 06:00 11/30/24 12:00 1 STRIP Insulin Human Regular Q6HR SC 11/28/24 06:00 11/30/24 12:33 2 UNITS Dextrose 50 ml UD PRN IV 11/28/24 03:15 Acetaminophen/ Hydrocodone Bitart 1 tab Q4HPRN PRN PO 11/28/24 12:30 Laboratory Results Laboratory Tests 11/28/24 06:09 Urinalysis Test 11/27/24 09:30 Urine Color Yellow (Yellow) Urine Clarity Clear (Clear) Urine pH 5.5 (5.0-9.0) Urine Specific [place] 1.015 (1.001-1.035) Urine Protein Negative (Negative) Urine Ketones Trace (Negative) Urine Blood 1+ /uL (Negative) H Urine Nitrite Negative (Negative) Urine Bilirubin Negative (Negative) Urine Urobilinogen Normal mg/dL (Negative) Urine Leukocyte Esterase 1+ /uL (Negative) Urine RBC 6 /hpf (0 - 4) Urine Microscopic WBC 14 /HPF (0-5) H Urine Squamous Epithelial Cells Few /hpf (<5) Urine Bacteria Few /hpf (None Seen) H Urine Mucus Few (None Seen) Urine Glucose Normal mg/dL (Normal) Labs and/or images reviewed: Labs reviewed by me, Image(s) reviewed by me Assessment/Plan Assessment/Plan Right lower quadrant abdominal pain: White count is normal, CT abdomen pelvis without contrast negative for any acute appendicitis, right lower quadrant abdominal ultrasound shows possible appendicitis, surgical consult by Dr. Ayala Heart appreciated, appendicitis ruled out, no surgical intervention needed Intractable abdominal pain History of cholecystectomy Constipation lactulose Anemia Diabetes Hypertension Hypercholesterolemia Patient feels better and wants to go home Patient's daughter at bed side Plan discussed with: Patient Date of Service: Nov 30, 2024 Billing Provider: JAMES VILLARREAL MD Common Visit Codes: [id number] INP/OBS CARE(HIGH) JAMES VILLARREAL MD Nov 30, 2024 12:48
--- NOTE | 2024-11-30 12:51 | DVHDS2 ---
Discharge Summary Date of Admission Nov 27, 2024 at 23:47 Date of Discharge: Nov 30, 2024 Admitting Diagnosis rt Lower quadrant pain Wounds: None Labs/Diagnostic Data: Laboratory Results Test 11/30/24 12:28 11/28/24 11:46 11/28/24 06:09 11/27/24 15:42 POC Glucose 148 mg/dl (70-106) Troponin I High Sensitivity 8 ng/L (</=34) White Blood Count 5.8 10^3/uL (4.4-10.8) Red Blood Count 3.75 10^6/uL (4.0-5.20) Hemoglobin 12.2 g/dL (12.2-16.2) Hematocrit 35.9 % (36.0-46.0) Mean Corpuscular Volume 95.7 fL (80.0-100.0) Mean Corpuscular Hemoglobin 32.5 pg (28.0-32.0) Mean Corpuscular Hemoglobin Concent 34.0 g/dL (32.0-36.0) Red Cell Distribution Width 14.1 % (11.8-14.3) Platelet Count 304 10^3/uL (140-450) Mean Platelet Volume 7.9 fL (6.9-10.8) Neutrophils (%) (Auto) 53.9 % (37.0-80.0) Lymphocytes (%) (Auto) 35.4 % (10.0-50.0) Monocytes (%) (Auto) 6.9 % (0.0-12.0) Eosinophils (%) (Auto) 2.9 % (0.0-7.0) Basophils (%) (Auto) 0.9 % (0.0-2.0) Neutrophils # (Auto) 3.1 10 ^3/uL (1.6-8.6) Lymphocytes # (Auto) 2.1 10 ^3/uL (0.4-5.4) Monocytes # (Auto) 0.4 10 ^3/uL (0-1.3) Eosinophils # (Auto) 0.2 10 ^3/uL (0-0.8) Basophils # (Auto) 0.1 10 ^3/uL (0-0.2) Nucleated Red Blood Cells 0.0 % Sodium Level 142 mmol/L (136-145) Potassium Level 3.7 mmol/L (3.5-5.1) Chloride Level 107 mmol/L (98-107) Carbon Dioxide Level 24 mmol/L (20-31) Anion Gap 11 (5-15) Blood Urea Nitrogen 7 mg/dL (9-23) Creatinine 0.51 mg/dL (0.550-1.02) Glomerular Filtration Rate Calc 102 mL/min (>90) BUN/Creatinine Ratio 13.7 (10.0-20.0) Serum Glucose 73 mg/dL (74-106) Hemoglobin A1c 5.8 % A1C (<5.7) Calcium Level 9.2 mg/dL (8.7-10.4) Total Bilirubin 0.8 mg/dL (0.2-1.0) Aspartate Amino Transferase (AST) 17 U/L (13-40) Alanine Aminotransferase (ALT) 12 U/L (7-40) Alkaline Phosphatase 59 U/L (46-116) Total Protein 6.9 g/dL (5.7-8.2) Albumin 4.3 g/dL (3.2-4.8) Triglycerides Level 73 mg/dL (< 150) Cholesterol Level 143 mg/dL (< 200) LDL Cholesterol 70 mg/dL (< 100) HDL Cholesterol 65 mg/dL (40-59) Thyroid Stimulating Hormone (TSH) 1.12 uIU/mL (0.55-4.78) Lipase 43 U/L (12-53) Test 11/27/24 09:30 Urine Color Yellow (Yellow) Urine Clarity Clear (Clear) Urine pH 5.5 (5.0-9.0) Urine Specific [place] 1.015 (1.001-1.035) Urine Protein Negative (Negative) Urine Ketones Trace (Negative) Urine Blood 1+ /uL (Negative) Urine Nitrite Negative (Negative) Urine Bilirubin Negative (Negative) Urine Urobilinogen Normal mg/dL (Negative) Urine Leukocyte Esterase 1+ /uL (Negative) Urine RBC 6 /hpf (0 - 4) Urine Microscopic WBC 14 /HPF (0-5) Urine Squamous Epithelial Cells Few /hpf (<5) Urine Bacteria Few /hpf (None Seen) Urine Mucus Few (None Seen) Urine Glucose Normal mg/dL (Normal) Other Laboratory Tests 11/28/24 06:09 Brief Hx & Hospital Course: 69-year-old female with a history of diabetes hypertension hypercholesterolemia status post cholecystectomy in the past came in for right lower quadrant abdominal pain. CT abdomen pelvis negative for any acute pathology seen by surgeon Dr. Ayala Heart acute appendicitis was ruled out patient had constipation given lactulose with a which she had good relief and feels better and wants to go home discharged. Consults/Reason for consult Surgeon Dr. Ayala Heart Operations or Procedures CT abdomen pelvis without contrast Condition at Discharge: Fair Final Diagnosis/Problems List Right lower quadrant abdominal pain: White count is normal, CT abdomen pelvis without contrast negative for any acute appendicitis, right lower quadrant abdominal ultrasound shows possible appendicitis, surgical consult by Dr. Ayala Heart appreciated, appendicitis ruled out, no surgical intervention needed Intractable abdominal pain History of cholecystectomy Constipation lactulose Anemia Diabetes Hypertension Hypercholesterolemia Discharge Disposition: Home Discharge Instruct/Medications Diet: Regular Activity: Light activity Follow Up/Referral: Follow up with the primary Dr Medications: None Scheduled Amlodipine Besylate (Amlodipine Besylate), 1 TAB PO DAILY, (Reported) Atorvastatin Calcium (Atorvastatin Calcium), 1 TAB PO DAILY, (Reported) Lisinopril (Lisinopril), 1 TAB PO DAILY, (Reported) Metformin Hydrochloride (Metformin Hcl), 1 TAB PO BID, (Reported) Discharge Statement: "Patient was advised to return to the ER or call 911 if any headaches, dizziness, shortness of breath, chest pain, abdominal pain, bleeding, fevers, or worsening of medical condition. Patient was counseled about treatment plan, medications, possible side effects, patientverbalized understanding. All questions were answered to the best of my ability. This discharge took greater then 30 minutes in planning, reviewing documentation, counseling the patient, and discussing with other team members." ASSESSMENT ASSESSMENT Hospital Course Uneventful Assessment Right lower quadrant abdominal pain: White count is normal, CT abdomen pelvis without contrast negative for any acute appendicitis, right lower quadrant abdominal ultrasound shows possible appendicitis, surgical consult by Dr. Ayala Heart appreciated, appendicitis ruled out, no surgical intervention needed Intractable abdominal pain History of cholecystectomy Constipation lactulose Anemia Diabetes Hypertension Hypercholesterolemia Date of Service: Nov 30, 2024 Billing Provider: JAMES VILLARREAL MD Common Visit Codes: [id number] DISCH DAY >30min JAMES VILLARREAL MD Nov 30, 2024 12:51
[2024-11-30 13:00] VITALS: BP 116/79; PULSE 66; RESP 15; TEMP 97.7; O2SAT 100
[2024-11-30 13:36] VITALS: BP 130/65; PULSE 66; RESP 15; TEMP 36.6; O2SAT 100
== END 2024-11-30 14:23 | disposition home or self-care (01) | DRG 390 ==
LOC: ER 14:14 → OVERFLOW 23:47 → WEST WING 11-28 01:47
PROVIDERS: ADMIT Family Medicine; ATTEND Family Medicine
DX: K56.41 Fecal impaction (principal); D64.9 Anemia, unspecified; E11.9 Type 2 diabetes mellitus without complications; E78.00 Pure hypercholesterolemia, unspecified; I10 Essential (primary) hypertension; Z90.49 Acquired absence of other specified parts of digestive tract; Z79.84 Long term (current) use of oral hypoglycemic drugs; Z79.899 Other long term (current) drug therapy
CPT/HCPCS: 36415; 74018; 74176; 76705; 80053; 80061; 81001; 82962; 83036; 83690; 84443; 84484; 85025; G0378; J1815; J2470